=== PATIENT | male | born 1990 | race Hispanic/Latino ===

== ENCOUNTER 2017-05-14 13:23 | Emergency (ER) | payer MEDICAID ==
[2017-05-14 13:31] VITALS: BMI 28.8
[2017-05-14] MEDS ORDERED: Morphine 4 mg/ml ISec IVP STA (13:52)
[2017-05-14] MEDS ORDERED: Sodium Chloride 0.9% 1,000 ML IV STA (13:52)
--- NOTE | 2017-05-14 13:59 | ED PDOC ---
Arrival/HPI - General Chief Complaint: GI Problem Time Seen by Provider: 05/14/17 13:52 Historian: Patient - History of Present Illness Narrative History of Present Illness (Text): 05/14/17 13:55 pt p/w + 3days onset of mid/lower abd pain, at most pain is 8/10, currently the pain is 6/10; pt states abd pain wax and wanes; + nausea/vomiting x few episodes /day; pt states no appetite, + tactile fever, no chills/sweats, pt states his stomach/insides "feels like its burning"; pt states no cp/sob/palpitations, no numbness/tingling, no urinary/bowel changes, no diarrhea, no rashes, no fall/ trauma/sick contact, no travel accommodations rater denied loc, no lightheadedness pt denied dobbins pt denied other complaints pt is here for further eval. 05/14/17 15:43 05/14/17 15:43 PMHx: unremarkable Time/Duration: < week (3 days) Symptom Onset: Sudden Symptom Course: Worsening Quality: Cramping, Throbbing Severity Level: 6, Severe Activities at Onset: Rest Context: Home Past Medical History - Provider Review Nursing Documentation Reviewed: Yes - Travel History Have you recently traveled outside [place] w/in the past 3 mons?: No - Past History Past History: No Previous - Infectious Disease Hx of Infectious Diseases: None - Gastrointestinal Hx Gastritis: Yes - Psychiatric Hx Substance Use: No - Anesthesia Hx Anesthesia: No Family/Social History - Physician Review Nursing Documentation Reviewed: Yes Family/Social History: No Known Family HX Smoking Status: Never Smoked Hx Alcohol Use: No Hx Substance Use: No Hx Substance Use Treatment: No Allergies/Home Meds Allergies/Adverse Reactions: Allergies No Known Allergies Allergy (Verified 05/14/17 13:31) Review of Systems - Review of Systems Constitutional: Fatigue, Fevers Eyes: Normal ENT: Normal Respiratory: Normal Cardiovascular: Normal Gastrointestinal: Abdominal Pain, Nausea, Vomiting Genitourinary Male: Normal Musculoskeletal: Normal Skin: Normal Neurological: Normal Endocrine: Normal Hemo/Lymphatic: Normal Psychiatric: Normal Physical Exam Vital Signs Reviewed: Yes Vital Signs Temp Pulse Resp BP Pulse Ox 05/14/17 13:32 98.6 F 94 H 18 136/76 97 Temperature: Afebrile Blood Pressure: Normal Pulse: Regular Respiratory Rate: Normal Appearance: Positive for: Well-Appearing, Other (uncomfortable, resting in bed, alert/awake, GCS = 15, oriented x 3, cooperative, follows commands with ease) Pain Distress: Mild Mental Status: Positive for: Alert and Oriented X 3 - Systems Exam Head: Present: Atraumatic, Normocephalic Pupils: Present: PERRL, Other (no nystagmus, no photophobia, sclera anicteric, visual field intact b/l) Extroacular Muscles: Present: EOMI Conjunctiva: Present: Normal Ears: Present: Normal Mouth: Present: Dry, Normal Teeth, Other (no drooling/stridor, no exudate/ lesions, intact dentitions, uvula/tongue are midline) Pharnyx: Present: Normal, ERYTHEMA Nose (External): Present: Atraumatic Nose (Internal): Present: Normal Inspection Neck: Present: Normal Range of Motion, Trachea Midline. No: MIDLINE TENDERNESS Respiratory/Chest: Present: Clear to Auscultation, Good Air Exchange, Other Cardiovascular: Present: Regular Rate and Rhythm, Normal S1, S2 Abdomen: Present: Tenderness (+ mid/lower right abd tenderness, ? mcburney's point tenderness, +BS, soft/nd, well nourished male, no jackson's sign, no masses /rebound/guarding/rigidity), Normal Bowel Sounds Back: Present: Normal Inspection. No: CVA Tenderness, Midline Tenderness Upper Extremity: Present: Normal Inspection, Normal ROM, NORMAL PULSES, Neurovascularly Intact, Capillary Refill < 2s Lower Extremity: Present: Normal Inspection, NORMAL PULSES, Normal ROM, Neurovascularly Intact, Capillary Refill < 2 s, Other (+ ambulatory) Neurological: Present: GCS=15, CN II-XII Intact, Speech Normal Skin: Present: Warm, Other (cap refill ~ 1 sec, no ulcerations, no petechiae) Psychiatric: Present: Alert Medical Decision Making ED Course and Treatment: 05/14/17 13:55 Impression: weakness, tactile fever, n/v, + lower abd pain i have consider all the differential diagnosis regarding pt's chief medical complaints/clinical findings, including but are not limited to: r/o appy, r/o diverticulitis, r/o UTI A/P: abd pain - labs - iv - ct - ua - observe - supportive care 05/14/17 16:15 pt is feeling much improved pt is made aware of pt's medical results pt is encouraged fluids pt is encouraged bland diet pt is encouraged no spicy foods, no caffeine products pt will f/u as directed pt will be discharged home Re-evaluation Time: 16:09 Reassessment Condition: Re-examined, Improving,but remains with symptoms - Lab Interpretations Lab Results: 05/14/17 13:44 05/14/17 13:44 Lab Results 05/14/17 14:00: Urine Color Yellow, Urine Appearance Clear, Urine pH 6.0, Ur Specific [place] 1.020, Urine Protein Negative, Urine Glucose (UA) Negative, Urine Ketones Negative, Urine Blood Negative, Urine Nitrate Negative, Urine Bilirubin Negative, Urine Urobilinogen 0.2, Ur Leukocyte Esterase Negative 05/14/17 13:44: Sodium 141, Potassium 4.0, Chloride 102, Carbon Dioxide 27, Anion Gap 17, BUN 15, Creatinine 0.9, Est GFR ( Amer) > 60, Est GFR (Non- Af Amer) > 60, Random Glucose 97, Calcium 10.0, Total Bilirubin 0.6, AST 30, ALT 46, Alkaline Phosphatase 61, Total Protein 8.1, Albumin 4.8, Globulin 3.3, Albumin/Globulin Ratio 1.5, Lipase 75 05/14/17 13:44: PT 12.3, INR 1.08, APTT 30.3 05/14/17 13:44: WBC 4.1 L, RBC 5.30, Hgb 15.8, Hct 46.0, MCV 86.8, MCH 29.8, MCHC 34.3, RDW 12.3, Plt Count 227, MPV 10.0, Gran % 56.2, Lymph % (Auto) 31.9, Parker % (Auto) 10.2 H, Eos % (Auto) 1.5, Baso % (Auto) 0.2, Gran # 2.31, Lymph # 1.3, Parker # 0.4, Eos # 0.1, Baso # 0.01 I have reviewed the lab results: Yes Interpretation: All labs normal - RAD Interpretation Narrative RAD Interpretations (Text): 05/14/17 16:[address] exam was performed using one or more of the following dose reduction techniques: Automated exposure control, adjustment of the mA and/or kV according to patient size, and/or use of iterative reconstruction technique. FINDINGS: LOWER THORAX: There is dependent atelectasis in the lung bases. LIVER: Normal in size and there is homogeneous enhancement. No gross lesion or ductal dilatation. GALLBLADDER AND BILE DUCTS: No calcified gallstones. PANCREAS: Normal in size with homogeneous enhancement. No gross lesion or ductal dilatation. SPLEEN: Normal in size and appearance. ADRENALS: No discrete nodule. KIDNEYS AND URETERS: Both kidneys are normal in size with homogeneous enhancement. There is focal caliectasis in the lower pole of the right kidney. No obstructing stone. No solid mass. VASCULATURE: No aortic aneurysm. BOWEL: The small bowel loops are normal in caliber. The colon is decompressed. No bowel dilatation or obstruction there is scattered colonic diverticulosis without CT evidence for acute diverticulitis. APPENDIX: Normal appendix. PERITONEUM: No free fluid. No free air. LYMPH NODES: No enlarged lymph nodes. BLADDER: Grossly normal in appearance. REPRODUCTIVE: The prostate gland is normal in size. BONES: No acute fracture. Within normal limits for the patient's age. OTHER FINDINGS: None. IMPRESSION: No acute abdominal or pelvic abnormality. Specifically, no evidence for acute appendicitis. Focal caliectasis in the lower pole of the right kidney without evidence of distal obstruction. Radiology Orders: 05/14/17 13:53 ABD & PELVIS IV CONTRAST ONLY [CT] Stat Sample Processor: Radiologist - EKG Interpretation EKG Interpretation (Text): 05/14/17 15:41 NSR at 95 bpm, normal axis, no ectopy, no st-t changes, NORMAL EKG; no old ekg to compare with 05/14/17 16:10 Interpreted by ED Physician: Yes Type: 12 lead EKG Comparison: No previous EKG avail. - Medication Orders Current Medication Orders: Discontinued Medications Famotidine (Pepcid) 20 mg IVP STAT STA Stop: 05/14/17 13:53 Last Admin: 05/14/17 14:14 Dose: 20 mg IVP Administration Document 05/14/17 14:14 MS (Rec: 05/14/17 14:14 MS [id number]) Charges for Administration # of IVP Administrations 1 Sodium Chloride (Sodium Chloride 0.9%) 1,000 mls @ 1,000 mls/hr IV .Q1H STA Stop: 05/14/17 14:51 Last Admin: 05/14/17 14:15 Dose: 1,000 mls/hr eMAR Start Stop Document 05/14/17 14:15 MS (Rec: 05/14/17 14:16 MS [id number]) Intravenous Solution Start Date 05/14/17 Start Time 14:16 End Date 05/14/17 End time 15:16 Total Infusion Time 60 Morphine Sulfate (Morphine) 4 mg IVP STAT STA Stop: 05/14/17 13:53 Last Admin: 05/14/17 14:10 Dose: 4 mg MAR Pain Assessment Document 05/14/17 14:10 MS (Rec: 05/14/17 14:14 MS [id number]) Pain Reassessment Is this a pain reassessment? No Sleep Is patient sleeping during reassessment? No Presence of Pain Presence of Pain Yes Pain Scale Used Pain Scale Used Numeric Location Pain Location Body Site Abdomen Description Description Constant Intensity of Pain at present 7 IVP Administration Document 05/14/17 14:10 MS (Rec: 05/14/17 14:14 MS [id number]) Charges for Administration # of IVP Administrations 1 Ondansetron HCl (Zofran Inj) 4 mg IVP STAT STA Stop: 05/14/17 13:55 Last Admin: 05/14/17 14:14 Dose: 4 mg IVP Administration Document 05/14/17 14:14 MS (Rec: 05/14/17 14:14 MS [id number]) Charges for Administration # of IVP Administrations 1 Disposition/Present on Arrival - Present on Arrival Any Indicators Present on Arrival: No History of DVT/PE: No History of Uncontrolled Diabetes: No Urinary Catheter: No History of Decub. Ulcer: No History Surgical Site Infection Following: None - Disposition Have Diagnosis and Disposition been Completed?: Yes Diagnosis: Epigastric abdominal pain, Acute gastritis Disposition: HOME/ ROUTINE Disposition Time: 16:07 Patient Plan: Discharge Condition: STABLE Discharge Instructions (ExitCare): Gastritis (ED), Dehydration (ED), Acute Nausea and Vomiting (ED) Print Language: LITHUANIAN Additional Instructions: Make sure to see your doctor in 1-2 days DRINK PLENTY OF FLUIDS BLAND DIET is encouraged AVOID caffeine products, avoid spicy foods AVOID alcohol take your medications as prescribed RETURN TO ED IF worse pain, cant breath, persistent vomiting, high fever >101- 102 for hours, altered behavior, unable to urinate, heavy/persistent bleeding, passing out, chest pain, or other medical emergencies Prescriptions: Famotidine [Pepcid] 20 mg PO BID #30 tab Ondansetron ODT [Zofran ODT] 4 mg PO TID PRN #12 odt PRN Reason: Nausea/Vomiting Referrals: PCP,KAN [Primary Care Provider] - Follow up with primary [facility] [place] [Outside] - Follow up with primary Kofi Sotomayor MD [Staff Provider] - Follow up with primary Forms: [employer] (Malay)
[2017-05-14 14:13] LABS: URINE BILIRUBIN NEGATIVE (NEGATIVE); URINE BLOOD NEGATIVE (NEGATIVE); URINE GLUCOSE (UA) NEGATIVE (NEGATIVE); URINE LEUKOCYTE ESTERASE NEGATIVE Leu/uL (NEGATIVE); URINE NITRATE NEGATIVE (NEGATIVE); URINE PROTEIN NEGATIVE mg/dL (<30 mg/dL); URINE UROBILINOGEN 0.2 E.U./dL (<1 E.U./dL)
[2017-05-14 14:14] LABS: URINE APPEARANCE CLEAR (CLEAR); URINE COLOR YELLOW (YELLOW)
[2017-05-14 14:26] LABS: BASO # 0.01 K/mm3 (0.0-2.0); BASO % 0.2 % (0.0-3.0); EOS # 0.1 (0.0-0.7); EOS % 1.5 % (1.5-5.0); GRAN # 2.31 (1.4-6.5); GRAN % 56.2 % (50.0-68.0); HEMOGLOBIN 15.8 g/dL (14.0-18.0); LYMPH # 1.3 (1.2-3.4); LYMPH % 31.9 % (22.0-35.0); MEAN CELL VOLUME 86.8 fl (80.0-105.0); MEAN CORPUSCULAR HEMOGLOBIN 29.8 pg (25.0-35.0); MEAN CORPUSCULAR HGB CONC 34.3 g/dl (31.0-37.0); MONO # 0.4 (0.1-0.6); MONO % 10.2 % (1.0-6.0); RBC 5.3 10^6/uL (3.5-6.1); RED CELL DISTRIBUTION WIDTH 12.3 % (11.5-14.5); WHITE BLOOD COUNT 4.1 10^3/ul (4.5-11.0)
[2017-05-14 14:35] LABS: ALB/GLOB RATIO 1.5 (1.1-1.8); ALBUMIN 4.8 g/dL (3.0-4.8); ALT/SGPT 46 U/L (7-56); AST/SGOT 30 U/L (17-59); BLOOD UREA NITROGEN 15 mg/dL (7-21); GFR AFRICAN-AMERICAN > 60; GFR NON-AFRICAN AMERICAN > 60; LIPASE 75 U/L (23-300)
[2017-05-14 14:37] LABS: INR 1.08 (0.93-1.08); PARTIAL THROMBOPLASTIN TIME 30.3 Seconds (25.1-36.5); PROTHROMBIN TIME 12.3 SECONDS (9.4-12.5)
[2017-05-14] MEDS ORDERED: Iohexol 350 MG/100 ML VIAL ONE (15:30)
--- NOTE | 2017-05-14 15:59 | CT ---
PROCEDURE: CT Abdomen and Pelvis with contrast HISTORY: 3 days lower/right sided abd pain, r/o appy COMPARISON: None. TECHNIQUE: CT scan of the abdomen and pelvis was performed after intravenous administration of contrast. Oral contrast was not administered. Coronal and sagittal reformatted images were obtained. Contrast dose: 100 mL Omnipaque 350 Radiation dose: Total exam DLP = 583.83 mGy-cm. This CT exam was performed using one or more of the following dose reduction techniques: Automated exposure control, adjustment of the mA and/or kV according to patient size, and/or use of iterative reconstruction technique. FINDINGS: LOWER THORAX: There is dependent atelectasis in the lung bases. LIVER: Normal in size and there is homogeneous enhancement. No gross lesion or ductal dilatation. GALLBLADDER AND BILE DUCTS: No calcified gallstones. PANCREAS: Normal in size with homogeneous enhancement. No gross lesion or ductal dilatation. SPLEEN: Normal in size and appearance. ADRENALS: No discrete nodule. KIDNEYS AND URETERS: Both kidneys are normal in size with homogeneous enhancement. There is focal caliectasis in the lower pole of the right kidney. No obstructing stone. No solid mass. VASCULATURE: No aortic aneurysm. BOWEL: The small bowel loops are normal in caliber. The colon is decompressed. No bowel dilatation or obstruction there is scattered colonic diverticulosis without CT evidence for acute diverticulitis. APPENDIX: Normal appendix. PERITONEUM: No free fluid. No free air. LYMPH NODES: No enlarged lymph nodes. BLADDER: Grossly normal in appearance. REPRODUCTIVE: The prostate gland is normal in size. BONES: No acute fracture. Within normal limits for the patient's age. OTHER FINDINGS: None. IMPRESSION: No acute abdominal or pelvic abnormality. Specifically, no evidence for acute appendicitis. Focal caliectasis in the lower pole of the right kidney without evidence of distal obstruction.
[2017-05-14 16:01] VITALS: BP 122/77; O2SAT 99
[2017-05-14 16:56] VITALS: PULSE 88; RESP 16; TEMP 97.7
--- NOTE | 2017-05-14 19:25 | CARD ---
APPROVED REPORT EKG Measurement Heart [id number] <Conclusion> Normal sinus rhythm Normal ECG
== END 2017-05-14 16:35 | disposition home or self-care (01) ==
LOC: MERGE 13:23 → ED 13:23
DX: K29.70 Gastritis, unspecified, without bleeding (principal)
CPT/HCPCS: 74177; 80053; 81003; 83690; 85025; 85610; 85730; 93005; 96361; 96374; 96375; 99283; J2270; J2405; J7040; Q9967